=== PATIENT | female | born 1995 | race African-American/Black ===

== ENCOUNTER 2019-05-23 06:54 | Emergency (ER) | payer MEDICAID ==
[~2019-05-23] VITALS: Ht 167.6 cm; Wt 61.0 kg
[2019-05-23] MEDS ORDERED: KETOROLAC 15MG/ML VIAL IM ONE (08:30)
[2019-05-23] MEDS ORDERED: ONDANSETRON 4MG ODT PO ONE (08:30)
[2019-05-23 09:55] LABS: CLARITY URINE CLOUDY (CLEAR); COLOR URINE YELLOW (YELLOW); KETONES URINE 1+ (NEGATIVE); LEUKOCYTE ESTERASE URINE 2+ (NEGATIVE); NITRITE URINE NEGATIVE (NEGATIVE); OCCULT BLOOD URINE NEGATIVE (NEGATIVE); PROTEIN URINE NEGATIVE (NEGATIVE); SPECIFIC GRAVITY URINE 1.021 (1.005-1.030); UROBILINOGEN URINE 0.2 E.U./dL (0.2-1.0)
[2019-05-23 09:58] LABS: HEMATOCRIT. 34.3 % (36.0-48.0); HEMOGLOBIN. 10.7 g/dL (12.0-16.0); MEAN CORPUSCULAR HEMOGLOBIN 20.7 pg (28.0-32.0); MEAN CORPUSCULAR VOLUME 66.3 fL (81.0-99.0); MEAN PLATELET VOLUME 10.1 fl (7.4-10.4); PLATELET 200 x1000/uL (130-400); RED BLOOD CELL COUNT 5.17 mill/uL (4.2-5.4); RED CELL DISTRIBUTION WIDTH 16.1 % (11.6-14.6)
[2019-05-23 10:00] LABS: CHLORIDE 106 mEq/L (98-107)
[2019-05-23 10:07] LABS: HCG SCREEN NEGATIVE
[2019-05-23 10:31] LABS: PLATELET ESTIMATE NORMAL
[2019-05-23 11:00] VITALS: BP 114/68
== END 2019-05-23 11:30 | disposition home or self-care (01) ==
LOC: ER 06:54
DX: N39.0 Urinary tract infection, site not specified (principal); D50.9 Iron deficiency anemia, unspecified; R03.0 Elevated blood-pressure reading, without diagnosis of hypertension
CPT/HCPCS: 36415; 71045; 80053; 81003; 81025; 83690; 84703; 85025; 87086; 93005; 96372; 99284; J1885; Q0162; Z7610

== ENCOUNTER 2023-08-13 00:22 | Emergency (ER) | payer MEDICAID, OTHER ==
[~2023-08-13] VITALS: Ht 165.1 cm; Wt 66.0 kg
[2023-08-13] MEDS ORDERED: MAGNESIUM/ALUMINUM HYDROXIDE/SIMETHICONE 30ML UDC PO STA (00:30)
[2023-08-13] MEDS ORDERED: PANTOPRAZOLE SODIUM 40 MG/VIAL IV STA (00:30)
[2023-08-13] MEDS ORDERED: ONDANSETRON HCL 4MG/2ML INJ IV STA (00:30)
[2023-08-13] MEDS ORDERED: SODIUM CHLORIDE 0.9% 1,000 ML IV ONE (00:30)
[2023-08-13] MEDS ORDERED: ACETAMINOPHEN 325MG TABLET PO STA (00:30)
[2023-08-13 01:02] LABS: BASOPHILS % 0.3 % (0.0-2.0); EOSINOPHILS % 0.9 % (0.0-5.0); HEMATOCRIT. 34.2 % (36.0-48.0); HEMOGLOBIN. 10.8 g/dL (12.0-16.0); LYMPHOCYTES % 18.2 % (20.0-50.0); MEAN CORPUSCULAR HEMOGLOBIN 20.6 pg (28.0-32.0); MEAN CORPUSCULAR HGB CONC 31.4 g/dL (31.0-37.0); MEAN CORPUSCULAR VOLUME 65.4 fL (81.0-99.0); MEAN PLATELET VOLUME 9.3 fl (7.4-10.4); MONOCYTES % 4.6 % (2.0-8.0); PLATELET 221 x1000/uL (130-400); RED BLOOD CELL COUNT 5.24 mill/uL (4.2-5.4); RED CELL DISTRIBUTION WIDTH 16.7 % (11.6-14.6); WHITE BLOOD COUNT 7.3 x1000/uL (4.5-11.0)
[2023-08-13 01:07] LABS: ADD RBC MORPHOLOGY YES; DIFFERENTIAL COMMENT 1
[2023-08-13 01:15] VITALS: BP 126/72; PULSE 88; RESP 18; O2SAT 97
[2023-08-13 01:18] LABS: CHLORIDE 111 mEq/L (98-107); INDEX HEMOLYSI 1 (1-3); INDEX ICTERIC 1 (1-4); INDEX LIPEMIC 1 (1-3); POTASSIUM 3.3 mEq/L (3.5-5.1); SODIUM 139 mEq/L (136-145)
[2023-08-13 01:25] LABS: ALANINE AMINOTRANSFERASE 30 IU/L (13-61); ALBUMIN 3.7 g/dL (3.4-5.0); ASPARTATE AMINOTRANSFERASE 49 IU/L (15-37); BILIRUBIN TOTAL 0.4 mg/dL (0.1-1.0); CALCIUM 8.4 mg/dL (8.5-10.1); CARBON DIOXIDE 22 mEq/L (21-32); CREATININE 0.7 mg/dL (0.6-1.3); ETHANOL BLOOD < 10 mg/dL (<10); GLUCOSE 160 mg/dL (70-105); PROTEIN TOTAL 7.8 g/dL (6.0-8.3); UREA NITROGEN BLOOD 14 mg/dL (7-21)
[2023-08-13 01:30] VITALS: TEMP 98.9
[2023-08-13 02:13] LABS: PROTHROMBIN TIME 10.9 sec (9.6-11.0)
[2023-08-13] MEDS ORDERED: ONDA4TAB50 MT ×2 (03:11→03:12)
[2023-08-13] MEDS ORDERED: ACET-2708 MT ×2 (03:11→03:12)
[2023-08-13] MEDS ORDERED: PROT40 MT ×2 (03:11→03:12)
[2023-08-13 05:28] LABS: HYPOCHROMASIA 1+; MICROCYTOSIS 2+; PLATELET ESTIMATE NORMAL
[2023-08-13 05:30] LABS: OVALOCYTES 1+
== END 2023-08-13 04:13 | disposition home or self-care (01) ==
LOC: ER 00:22
DX: A08.4 Viral intestinal infection, unspecified (principal); F41.9 Anxiety disorder, unspecified
CPT/HCPCS: 80053; 80320; 83690; 85025; 85610; 36415; 96361; 96374; 96375; 99284; J2405; C9113; J7030; Z7610 ×2; G0480